=== PATIENT | female | born 1995 | race Caucasian/White ===

== ENCOUNTER 2016-10-02 16:48 | Emergency (ER) | payer OTHER, SELFPAY ==
[2016-10-02] MEDS ORDERED: METHOCARBAMOL 500 MG TAB As Ordered ONE (19:06)
[2016-10-02] MEDS ORDERED: IBUPROFEN 800 MG TAB As Ordered ONE (19:06)
--- NOTE | 2016-10-02 22:18 | EDDOCDS ---
Nurse's Notes [facility] Name: Mary Lou Marrero Age: 20 yrs Sex: Female : 1995 Arrival Date: 10/02/2016 Time: 16:48 Bed TR3 Private MD: ZACHARY Garrido Diagnosis: Strain of muscle, fascia and tendon of other parts of biceps, left arm Presentation: 10/02 17:32 Presenting complaint: Patient states: Left elbow pain that began yesterday and has lf1 gotten worse today. Pt. reports no known injury. Pain is currently 0/10 and 10/10 when moved. Adult Sepsis Screening: The patient does not have new or worsening altered mentation. Patient's respiratory rate is less than 22. Systolic blood pressure is greater than 100. Patient has a qSOFA score of 0- Negative Sepsis Screen. Suicide/Homicide risk assessment- the patient denies having any suicidal and/or homicidal ideations and does not present with any other emotional, behavioral or mental health complaints. Status: The patient is a dependent. Transition of care: patient was not received from another setting of care. 17:32 Acuity: CASSANDRA Level 4 lf1 17:32 Method Of Arrival: Walkin/Carried/Asstd lf1 Triage Assessment: 17:36 General: Appears in no apparent distress, comfortable, Behavior is cooperative. Pain: lf1 Denies pain. Location: left AC Pain currently is 0 out of 10 on a pain scale. At worst was 10 out of 10 on a pain scale. Aggravated by repositioning. 17:36 The patient is triaged at the bedside. See Assessment in Nurses Notes section of ED lf1 record. The patient is triaged at the bedside. See Assessment in Nurses Notes section of ED record. Neurological: Level of Consciousness is awake, alert, Oriented to person, place, time. Cardiovascular: Chest pain is denied. Respiratory: Respiratory effort is even, unlabored. GI: Reports nausea, Denies vomiting. : Denies burning with urination. Derm: No deficits noted. 20:09 HIV screening NA for this visit Offered previously. 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 albuterol sulfate 90 mcg/actuation Inhl HFAA 2 puffs every 12 hours (Last dose: 10/02/2016 08:00) 2. Advair Diskus 500-50 mcg/dose Inhl dsdv 1 puff 2 times per day (Last dose: 10/02/2016 08:00) - PMHx: Asthma; Ovarian cyst; - PSHx: none; - Social history: Smoking status: Patient states was never smoker of tobacco. No barriers to communication noted, The patient speaks fluent Italian, Speaks appropriately for age, Preferred Language: Italian. - Family history: Not pertinent. - : The pt / caregiver states he / she is not on anticoagulants. Home medication list is obtained from the patient. - Exposure Risk Screening:: None identified. Screenin:37 Screening information is obtained from the patient. Fall risk: No risks identified. lf1 Assistance ADL's: requires no assistance with activities of daily living. Abuse/DV Screen: The patient / caregiver reports he/she is: not in a situation that causes fear, pain or injury. Nutritional screening: No deficits noted. Advance Directives: Currently, there is no health care proxy. There is no active DNR order. home support is adequate. Assessment: 20:05 Adult Sepsis Screening: The patient does not have new or worsening altered mentation. lf1 Patient's respiratory rate is less than 22. Systolic blood pressure is greater than 100. Patient has a qSOFA score of 0- Negative Sepsis Screen. General: Appears in no apparent distress, comfortable, Behavior is cooperative. Pain: Location: left bicep Pain currently is 2 out of 10 on a pain scale. At worst was 10 out of 10 on a pain scale. Neurological: Level of Consciousness is awake, alert. EENT: No deficits noted. Cardiovascular: No deficits noted. Respiratory: Respiratory effort is even, unlabored. GI: Denies nausea, vomiting. Derm: Skin is normal. Injury Description: No known injury. Vital Signs: 16:50 BP 126 / 74; Pulse 78; Resp 18; Temp 99.0(O); Pulse Ox 100% on R/A; Weight 69.4 kg (R); dd6 Height 5 ft. 5 in. (165.10 cm) (R); 19:53 BP 127 / 72; Pulse 93; Resp 18; Temp 98.5(TE); Pulse Ox 99% on R/A; Pain 0/10; mdr 16:50 Body Mass Index 25.46 (69.40 kg, 165.10 cm) dd6 Vitals: 16:50 Log In Time: October 02, 2016 at 16:48. dd6 ED Course: 16:49 Patient visited by Shaquille Grijalva PCA. dd6 16:49 Radhika [facility] is Private Physician. dd6 16:49 Patient moved to Waiting dd6 16:50 Patient moved to Pre RCE dd6 17:34 Triage Initiated lf1 18:25 Patient moved to Triage 3 kr3 18:43 Frederick Shaikh PA is PHCP. mo1 18:43 Holley Vieira MD is Attending Physician. mo1 18:50 Patient visited by Frederick Shaikh PA. mo1 19:11 Patient moved to TR1 mb9 19:23 Patient name changed from Mary Lou\S\N\S\Marrero\S\ to Mary Lou\S\Nolvia\S\Marrero. EDMS 19:25 [facility] Payment Agreement was scanned into [employer] and attached to record. gb 19:39 Garrido, [facility] is Referral Physician. mo1 19:47 Patient moved to PR2 / 26 ajs 19:53 Patient visited by Memo Chambers PCA. mdr 20:04 Patient moved to TR3 mdr 20:05 Patient visited by Aubree Gerard RN. lf1 20:05 The patient / caregiver is instructed regarding the plan of care and ED course. lf1 20:05 No IV's were initiated during this patient's visit. No procedures done that require lf1 assistance. Administered Medications: 19:11 Drug: Ibuprofen 800 mg [ibuprofen 800 mg tablet (1 tabs)] Route: PO; mb9 20:05 Follow up: Response: Pain is decreased lf1 19:11 Drug: Methocarbamol 1 grams [methocarbamol 500 mg tablet (2 tabs)] Route: PO; mb9 20:05 Follow up: Response: Pain is decreased lf1 Order Results: There are currently no results for this order. Outcome: 19:39 Discharge ordered by Provider. mo1 20:05 Discharge Assessment: Patient awake, alert and oriented x 3. No cognitive and/or lf1 functional deficits noted. Patient verbalized understanding of disposition instructions. Patient awake and alert. Oriented to person, place and time. Patient verbalized understanding of disposition instructions. Patient has no functional deficits. patient administered narcotics - no. The following High Risk Discharge criteria are identified: None. Discharged to home ambulatory. Condition: improved. Discharge instructions given to patient, Instructed on discharge instructions, follow up and referral plans. medication usage, Demonstrated understanding of instructions, medications, Pt was receptive of discharge instructions/ teaching. Prescriptions given X 2. No special radiology studies were completed. Property :Personal belongings accompany Pt. 22:17 Patient left the ED. lf1 Signatures: Dispatcher [employer] EDMS Berta Huynh, Reg Reg gb Mel Shell,RN RN kr3 Aubree GerardRN RN lf1 Shaquille Grijalva, BRUSH WORKER BRUSH WORKER dd6 Ann Turner Michael, PA PA mo1 Frederick Sanchez,RN RN mb9 Memo Chambers, BRUSH WORKER BRUSH WORKER mdr LUIS ARMANDOD
--- NOTE | 2016-10-02 22:18 | EDDOCDS ---
Physician Documentation [facility] Name: Mary Lou Marrero Age: 20 yrs Sex: Female : 1995 Arrival Date: 10/02/2016 Time: 16:48 Bed TR3 Private MD: ZACHARY Garrido Disposition: 10/02/16 19:39 Discharged to Home/Self Care. Impression: Strain of muscle, fascia and tendon of other parts of biceps, left arm. - Condition is Stable. - Discharge Instructions: Muscle Strain, Bicipital Tendonitis. - Prescriptions for Ibuprofen 600 mg Oral Tablet - take 1 tablet by ORAL route every 6 hours As needed take with food; 30 tablet. Robaxin 500 mg Oral Tablet - take 2 tablet by ORAL route every 6 hours As needed; 40 tablet. - Work Release Form - 2 day, Medication Reconciliation, Local Pharmacy Hours form. - Follow up: ZACHARY Garrido; When: Call to arrange an appointment; Reason: Recheck today's complaints, Continuance of care. - Problem is new. - Symptoms are unchanged. Historical: - Allergies: Codeine Sulfate (Anaphylaxis); - Home Meds: 1. albuterol sulfate 90 mcg/actuation Inhl HFAA 2 puffs every 12 hours (Last dose: 10/02/2016 08:00) 2. Advair Diskus 500-50 mcg/dose Inhl dsdv 1 puff 2 times per day (Last dose: 10/02/2016 08:00) - PMHx: Asthma; Ovarian cyst; - PSHx: none; - Social history: Smoking status: Patient states was never smoker of tobacco. No barriers to communication noted, The patient speaks fluent Yakut, Speaks appropriately for age, Preferred Language: Yakut. - Family history: Not pertinent. - : The pt / caregiver states he / she is not on anticoagulants. Home medication list is obtained from the patient. - Exposure Risk Screening:: None identified. 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 5 in. (165.10 cm) (R); 19:53 BP 127 / 72; Pulse 93; Resp 18; Temp 98.5(TE); Pulse Ox 99% on R/A; Pain 0/10; mdr 16:50 Body Mass Index 25.46 (69.40 kg, 165.10 cm) dd6 MDM: 18:59 Financial registration complete. gb 19:02 Ibuprofen 800 mg PO once ordered. mo1 19:02 Methocarbamol 1 grams PO once ordered. mo1 19:03 Humerus Ordered. EDMS 19:25 [facility] Payment Agreement was scanned into [employer] and attached to record. gb 19:39 Sling ordered. mo1 Administered Medications: 19:11 Drug: Ibuprofen 800 mg [ibuprofen 800 mg tablet (1 tabs)] Route: PO; mb9 20:05 Follow up: Response: Pain is decreased lf1 19:11 Drug: Methocarbamol 1 grams [methocarbamol 500 mg tablet (2 tabs)] Route: PO; mb9 20:05 Follow up: Response: Pain is decreased lf1 Signatures: Dispatcher [employer] EDNH Berta Huynh, Reg Reg gb Aubree GerardRN RN lf1 Frederick Shaikh PA PA mo1 Frederick Sanchez RN mb9 The chart was reviewed and I authenticate all verbal orders and agree with the evaluation and treatment provided.Attachments: 19:25 [facility] Payment Agreement gb MTDD
--- NOTE | 2016-10-03 06:08 | REP ---
LEFT HUMERUS, TWO VIEWS: There is no evidence of an acute fracture, dislocation or intrinsic bone disease. IMPRESSION: No fracture or dislocation. Signed by Ketan Khan MD 10/04/2016 12:45 P
--- NOTE | 2016-10-04 23:17 | EDDOCDS ---
Nurse's Notes [facility] Name: Mary Lou Marrero Age: 20 yrs Sex: Female : 1995 Arrival Date: 10/02/2016 Time: 16:48 Bed TR3 Private MD: ZACHARY Garrido Diagnosis: Strain of muscle, fascia and tendon of other parts of biceps, left arm Presentation: 10/02 17:32 Presenting complaint: Patient states: Left elbow pain that began yesterday and has lf1 gotten worse today. Pt. reports no known injury. Pain is currently 0/10 and 10/10 when moved. Adult Sepsis Screening: The patient does not have new or worsening altered mentation. Patient's respiratory rate is less than 22. Systolic blood pressure is greater than 100. Patient has a qSOFA score of 0- Negative Sepsis Screen. Suicide/Homicide risk assessment- the patient denies having any suicidal and/or homicidal ideations and does not present with any other emotional, behavioral or mental health complaints. Status: The patient is a dependent. Transition of care: patient was not received from another setting of care. 17:32 Acuity: CASSANDRA Level 4 lf1 17:32 Method Of Arrival: Walkin/Carried/Asstd lf1 Triage Assessment: 17:36 General: Appears in no apparent distress, comfortable, Behavior is cooperative. Pain: lf1 Denies pain. Location: left AC Pain currently is 0 out of 10 on a pain scale. At worst was 10 out of 10 on a pain scale. Aggravated by repositioning. 17:36 The patient is triaged at the bedside. See Assessment in Nurses Notes section of ED lf1 record. The patient is triaged at the bedside. See Assessment in Nurses Notes section of ED record. Neurological: Level of Consciousness is awake, alert, Oriented to person, place, time. Cardiovascular: Chest pain is denied. Respiratory: Respiratory effort is even, unlabored. GI: Reports nausea, Denies vomiting. : Denies burning with urination. Derm: No deficits noted. 20:09 HIV screening NA for this visit Offered previously. 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 albuterol sulfate 90 mcg/actuation Inhl HFAA 2 puffs every 12 hours (Last dose: 10/02/2016 08:00) 2. Advair Diskus 500-50 mcg/dose Inhl dsdv 1 puff 2 times per day (Last dose: 10/02/2016 08:00) - PMHx: Asthma; Ovarian cyst; - PSHx: none; - Social history: Smoking status: Patient states was never smoker of tobacco. No barriers to communication noted, The patient speaks fluent Telugu, Speaks appropriately for age, Preferred Language: Telugu. - Family history: Not pertinent. - : The pt / caregiver states he / she is not on anticoagulants. Home medication list is obtained from the patient. - Exposure Risk Screening:: None identified. Screenin:37 Screening information is obtained from the patient. Fall risk: No risks identified. lf1 Assistance ADL's: requires no assistance with activities of daily living. Abuse/DV Screen: The patient / caregiver reports he/she is: not in a situation that causes fear, pain or injury. Nutritional screening: No deficits noted. Advance Directives: Currently, there is no health care proxy. There is no active DNR order. home support is adequate. Assessment: 20:05 Adult Sepsis Screening: The patient does not have new or worsening altered mentation. lf1 Patient's respiratory rate is less than 22. Systolic blood pressure is greater than 100. Patient has a qSOFA score of 0- Negative Sepsis Screen. General: Appears in no apparent distress, comfortable, Behavior is cooperative. Pain: Location: left bicep Pain currently is 2 out of 10 on a pain scale. At worst was 10 out of 10 on a pain scale. Neurological: Level of Consciousness is awake, alert. EENT: No deficits noted. Cardiovascular: No deficits noted. Respiratory: Respiratory effort is even, unlabored. GI: Denies nausea, vomiting. Derm: Skin is normal. Injury Description: No known injury. Vital Signs: 16:50 BP 126 / 74; Pulse 78; Resp 18; Temp 99.0(O); Pulse Ox 100% on R/A; Weight 69.4 kg (R); dd6 Height 5 ft. 5 in. (165.10 cm) (R); 19:53 BP 127 / 72; Pulse 93; Resp 18; Temp 98.5(TE); Pulse Ox 99% on R/A; Pain 0/10; mdr 16:50 Body Mass Index 25.46 (69.40 kg, 165.10 cm) dd6 Vitals: 16:50 Log In Time: October 02, 2016 at 16:48. dd6 ED Course: 16:49 Patient visited by Shaquille Grijalva PCA. dd6 16:49 Radhika [facility] [place] Private Physician. dd6 16:49 Patient moved to Waiting dd6 16:50 Patient moved to Pre RCE dd6 17:34 Triage Initiated lf1 18:25 Patient moved to Triage 3 kr3 18:43 Frederick Shaikh PA is PHCP. mo1 18:43 Holley Vieira MD is Attending Physician. mo1 18:50 Patient visited by Frederick Shaikh PA. mo1 19:11 Patient moved to TR1 mb9 19:23 Patient name changed from Mary Lou\S\N\S\Marrero\S\ to Mary Lou\S\Nolvia\S\Marrero. EDMS 19:25 [facility] Payment Agreement was scanned into [employer] and attached to record. gb 19:39 Garrido, [facility] [place] Referral Physician. mo1 19:47 Patient moved to PR2 / 26 ajs 19:53 Patient visited by Memo Chambers PCA. mdr 20:04 Patient moved to TR3 mdr 20:05 Patient visited by Aubree Gerard RN. lf1 20:05 The patient / caregiver is instructed regarding the plan of care and ED course. lf1 20:05 No IV's were initiated during this patient's visit. No procedures done that require lf1 assistance. 10/03 03:05 T-Sheet-- Draft Copy was scanned into [employer] and attached to record. hs2 06:32 Humerus Returned. EDMS Administered Medications: 10/02 19:11 Drug: Ibuprofen 800 mg [ibuprofen 800 mg tablet (1 tabs)] Route: PO; mb9 20:05 Follow up: Response: Pain is decreased lf1 19:11 Drug: Methocarbamol 1 grams [methocarbamol 500 mg tablet (2 tabs)] Route: PO; mb9 20:05 Follow up: Response: Pain is decreased lf1 Order Results: Radiology Order: Humerus Test: Humerus REASON FOR EXAMINATION: Trauma; LEFT HUMERUS, TWO VIEWS:; ; There is no evidence of an acute fracture, dislocation or intrinsic bone; disease.; ; IMPRESSION:; ; No fracture or dislocation.; ; ; Signed by; Ketan Khan MD 10/04/2016 12:45 P; Outcome: 19:39 Discharge ordered by Provider. mo1 20:05 Discharge Assessment: Patient awake, alert and oriented x 3. No cognitive and/or lf1 functional deficits noted. Patient verbalized understanding of disposition instructions. Patient awake and alert. Oriented to person, place and time. Patient verbalized understanding of disposition instructions. Patient has no functional deficits. patient administered narcotics - no. The following High Risk Discharge criteria are identified: None. Discharged to home ambulatory. Condition: improved. Discharge instructions given to patient, Instructed on discharge instructions, follow up and referral plans. medication usage, Demonstrated understanding of instructions, medications, Pt was receptive of discharge instructions/ teaching. Prescriptions given X 2. No special radiology studies were completed. Property :Personal belongings accompany Pt. 22:17 Patient left the ED. lf1 Signatures: Dispatcher [employer] EDMS Berta Huynh, Reg Reg gb Mel Shell,RN RN kr3 Aubree GerardRN RN lf1 Shaquille Grijalva, PLASTIC AND RECONSTRUCTIVE SURGEON PLASTIC AND RECONSTRUCTIVE SURGEON dd6 Ann Turner Michael, PA PA mo1 Frederick Sanchez,RN RN mb9 Memo Chambers, PLASTIC AND RECONSTRUCTIVE SURGEON PLASTIC AND RECONSTRUCTIVE SURGEON mdr Lacey Sneed, Reg Reg hs2 Chart Complete MTDD
--- NOTE | 2016-10-04 23:17 | EDDOCDS ---
Physician Documentation [facility] Name: Mary Lou Marrero Age: 20 yrs Sex: Female : 1995 Arrival Date: 10/02/2016 Time: 16:48 Bed TR3 Private MD: ZACHARY Garrido Disposition: 10/02/16 19:39 Discharged to Home/Self Care. Impression: Strain of muscle, fascia and tendon of other parts of biceps, left arm. - Condition is Stable. - Discharge Instructions: Muscle Strain, Bicipital Tendonitis. - Prescriptions for Ibuprofen 600 mg Oral Tablet - take 1 tablet by ORAL route every 6 hours As needed take with food; 30 tablet. Robaxin 500 mg Oral Tablet - take 2 tablet by ORAL route every 6 hours As needed; 40 tablet. - Work Release Form - 2 day, Medication Reconciliation, Local Pharmacy Hours form. - Follow up: ZACHARY Garrido; When: Call to arrange an appointment; Reason: Recheck today's complaints, Continuance of care. - Problem is new. - Symptoms are unchanged. Historical: - Allergies: Codeine Sulfate (Anaphylaxis); - Home Meds: 1. albuterol sulfate 90 mcg/actuation Inhl HFAA 2 puffs every 12 hours (Last dose: 10/02/2016 08:00) 2. Advair Diskus 500-50 mcg/dose Inhl dsdv 1 puff 2 times per day (Last dose: 10/02/2016 08:00) - PMHx: Asthma; Ovarian cyst; - PSHx: none; - Social history: Smoking status: Patient states was never smoker of tobacco. No barriers to communication noted, The patient speaks fluent Pashto, Speaks appropriately for age, Preferred Language: Pashto. - Family history: Not pertinent. - : The pt / caregiver states he / she is not on anticoagulants. Home medication list is obtained from the patient. - Exposure Risk Screening:: None identified. 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 5 in. (165.10 cm) (R); 19:53 BP 127 / 72; Pulse 93; Resp 18; Temp 98.5(TE); Pulse Ox 99% on R/A; Pain 0/10; mdr 16:50 Body Mass Index 25.46 (69.40 kg, 165.10 cm) dd6 MDM: 18:59 Financial registration complete. gb 19:02 Ibuprofen 800 mg PO once ordered. mo1 19:02 Methocarbamol 1 grams PO once ordered. mo1 19:03 Humerus Ordered. EDMS [facility] Payment Agreement was scanned into [employer] and attached to record. gb 19:39 Sling ordered. mo1 10/03 03:05 T-Sheet-- Draft Copy was scanned into [employer] and attached to record. hs2 Administered Medications: 10/02 19:11 Drug: Ibuprofen 800 mg [ibuprofen 800 mg tablet (1 tabs)] Route: PO; mb9 20:05 Follow up: Response: Pain is decreased lf1 19:11 Drug: Methocarbamol 1 grams [methocarbamol 500 mg tablet (2 tabs)] Route: PO; mb9 20:05 Follow up: Response: Pain is decreased lf1 Signatures: Dispatcher [employer] EDMS Berta Huynh, Reg Reg gb Aubree Gerard RN RN lf1 Frederick Shaikh PA PA mo1 Lacey Sneed, Reg Reg hs2 Frederick Sanchez RN mb9 The chart was reviewed and I authenticate all verbal orders and agree with the evaluation and treatment provided.Attachments: : [facility] Payment Agreement gb 10/03 03:05 T-Sheet-- Draft Copy hs2 Chart Complete MTDD
--- NOTE | 2016-10-04 23:17 | EDDOCDS ---
Physician Documentation [facility] Name: Mary Lou Marrero Age: 20 yrs Sex: Female : 1995 Arrival Date: 10/02/2016 Time: 16:48 Bed TR3 Private MD: ZACHARY Garrido Disposition: 10/02/16 19:39 Discharged to Home/Self Care. Impression: Strain of muscle, fascia and tendon of other parts of biceps, left arm. - Condition is Stable. - Discharge Instructions: Muscle Strain, Bicipital Tendonitis. - Prescriptions for Ibuprofen 600 mg Oral Tablet - take 1 tablet by ORAL route every 6 hours As needed take with food; 30 tablet. Robaxin 500 mg Oral Tablet - take 2 tablet by ORAL route every 6 hours As needed; 40 tablet. - Work Release Form - 2 day, Medication Reconciliation, Local Pharmacy Hours form. - Follow up: ZACHARY Garrido; When: Call to arrange an appointment; Reason: Recheck today's complaints, Continuance of care. - Problem is new. - Symptoms are unchanged. Historical: - Allergies: Codeine Sulfate (Anaphylaxis); - Home Meds: 1. albuterol sulfate 90 mcg/actuation Inhl HFAA 2 puffs every 12 hours (Last dose: 10/02/2016 08:00) 2. Advair Diskus 500-50 mcg/dose Inhl dsdv 1 puff 2 times per day (Last dose: 10/02/2016 08:00) - PMHx: Asthma; Ovarian cyst; - PSHx: none; - Social history: Smoking status: Patient states was never smoker of tobacco. No barriers to communication noted, The patient speaks fluent Maltese, Speaks appropriately for age, Preferred Language: Maltese. - Family history: Not pertinent. - : The pt / caregiver states he / she is not on anticoagulants. Home medication list is obtained from the patient. - Exposure Risk Screening:: None identified. 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 5 in. (165.10 cm) (R); 19:53 BP 127 / 72; Pulse 93; Resp 18; Temp 98.5(TE); Pulse Ox 99% on R/A; Pain 0/10; mdr 16:50 Body Mass Index 25.46 (69.40 kg, 165.10 cm) dd6 MDM: 18:59 Financial registration complete. gb 19:02 Ibuprofen 800 mg PO once ordered. mo1 19:02 Methocarbamol 1 grams PO once ordered. mo1 19:03 Humerus Ordered. EDMS [facility] Payment Agreement was scanned into [employer] and attached to record. gb 19:39 Sling ordered. mo1 10/03 03:05 T-Sheet-- Draft Copy was scanned into [employer] and attached to record. hs2 Administered Medications: 10/02 19:11 Drug: Ibuprofen 800 mg [ibuprofen 800 mg tablet (1 tabs)] Route: PO; mb9 20:05 Follow up: Response: Pain is decreased lf1 19:11 Drug: Methocarbamol 1 grams [methocarbamol 500 mg tablet (2 tabs)] Route: PO; mb9 20:05 Follow up: Response: Pain is decreased lf1 Signatures: Dispatcher [employer] EDMS Berta Huynh, Reg Reg gb Aubree Gerard RN RN lf1 Frederick Shaikh PA PA mo1 Lacey Sneed, Reg Reg hs2 Frederick Sanchez RN mb9 The chart was reviewed and I authenticate all verbal orders and agree with the evaluation and treatment provided.Attachments: : [facility] Payment Agreement gb 10/03 03:05 T-Sheet-- Draft Copy hs2 Chart Complete MTDD
== END 2016-10-02 22:17 | disposition home or self-care (01) ==
LOC: M ED 16:48
DX: S46.212A Strain of muscle, fascia and tendon of other parts of biceps, left arm, initial encounter (principal); X58.XXXA Exposure to other specified factors, initial encounter; Y92.019 Unspecified place in single-family (private) house as the place of occurrence of the external cause; Y93.89 Activity, other specified; Y99.8 Other external cause status; J45.909 Unspecified asthma, uncomplicated; N83.209 Unspecified ovarian cyst, unspecified side; Z79.51 Long term (current) use of inhaled steroids; Z88.5 Allergy status to narcotic agent

== ENCOUNTER 2016-10-19 01:32 | Emergency (ER) | payer OTHER ==
[2016-10-19] MEDS ORDERED: LIDOCAINE VISCOUS 2% SOLN 15ML UDC As Ordered ONE (05:58)
[2016-10-19] MEDS ORDERED: ONDANSETRON 4 MG ORAL DISINTEGRATING TAB (S0181) As Ordered ONE (05:58)
[2016-10-19] MEDS ORDERED: ONDANSETRON 4MG/2ML VIAL (J2405) As Ordered ONE (06:14)
[2016-10-19] MEDS ORDERED: KETOROLAC 30 MG/ML VIAL (J1885) As Ordered ONE (06:15)
[2016-10-19 06:17] LABS: BASO % 0.3 % (0.0-1.0); EOS # 0.1 K/mm3 (0.0-0.50); EOS % 0.9 % (0.0-3.0); LARGE UNSTAINED CELL # 0.2 K/mm3 (0.0-0.4); LARGE UNSTAINED CELL % 2.2 % (0.0-4.0); LYMPH # 1.8 K/mm3 (1.5-6.5); LYMPH % 17.3 % (24.0-44.0); MEAN CORPUSCULAR HEMOGLOBIN 29.9 pg (27.0-33.0); MONO # 0.5 K/mm3 (0.0-0.8); MONO % 4.2 % (0.0-5.0); NEUTROPHILS # 7.9 K/mm3 (1.8-7.7); NEUTROPHILS % 75.1 % (36.0-66.0); PLATELET COUNT, AUTOMATED 228 k/mm3 (150-450); RED CELL DISTRIBUTION WIDTH 12.3 % (11.5-14.5); WHITE BLOOD COUNT 10.5 K/mm3 (4.0-10.0)
[2016-10-19 06:39] LABS: CONTROL LINE HCG INT CTR LINE PRESENT
[2016-10-19 06:44] LABS: ANION GAP 10 MEQ/L (8-16); BLOOD UREA NITROGEN 11 MG/DL (7-18); CALCIUM LEVEL 8.8 MG/DL (8.5-10.1); CARBON DIOXIDE LEVEL 23 MEQ/L (21-32); CHLORIDE LEVEL 110 MEQ/L (98-107); CREATININE FOR GFR 0.75 MG/DL (0.55-1.02); GLOMERULAR FILTRATION RATE > 60.0 (>60); GLUCOSE, FASTING 86 MG/DL (70-105); POTASSIUM SERUM 3.5 MEQ/L (3.5-5.1); SODIUM LEVEL 143 MEQ/L (136-145)
[2016-10-19 07:26] LABS: CONTROL LINE MONO INT CTR LINE PRESENT
--- NOTE | 2016-10-19 10:09 | EDDOCDS ---
Physician Documentation [facility] Name: Mary Lou Marrero Age: 20 yrs Sex: Female : 1995 Arrival Date: 10/19/2016 Time: 01:32 Bed 13 Private MD: Disposition: 10/19/16 10:00 Discharged to Home/Self Care. Impression: Acute pharyngitis. - Condition is Stable. - Discharge Instructions: Pharyngitis. - Prescriptions for Zofran 4 mg Oral Tablet - take 1 tablet by ORAL route 1-2 times daily As needed; 5 tablet. - Medication Reconciliation, Local Pharmacy Hours form. - Follow up: Elliott Paniagua, [facility]; When: Call to arrange an appointment; Reason: Continuance of care. - Problem is new. - Symptoms have improved. Historical: - Allergies: Codeine Sulfate (Anaphylaxis); - Home Meds: 1. Advair Diskus 500-50 mcg/dose Inhl dsdv 1 puff 2 times per day 2. albuterol sulfate 90 mcg/actuation Inhl HFAA 2 puffs every 12 hours 3. Zyrtec Oral 4. sudafed - PMHx: Asthma; Ovarian cyst; - PSHx: none; - Social history: Smoking status: Patient states was never smoker of tobacco. No barriers to communication noted, The patient speaks fluent Belizean, Speaks appropriately for age. - Family history: Not pertinent. - : The pt / caregiver states he / she is not on anticoagulants. Home medication list is obtained from the patient. - Exposure Risk Screening:: None identified. 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 5 in. (165.10 cm); 07:22 BP 114 / 64; Pulse 89; Resp 14; Temp 98.6(O); Pulse Ox 98% on R/A; js13 10:05 BP 112 / 60; Pulse 78; Resp 14; Temp 98.4(O); Pulse Ox 98% on R/A; js13 01:55 Body Mass Index 24.63 (67.13 kg, 165.10 cm) cz MDM: 01:58 Strep Screen, Nursing ordered. cz 02:10 GATS (NEGATIVE STREP SCREEN) Ordered. EDMS 03:08 [facility] [place] was scanned into [employer] and attached to record. hs2 05:52 Lidocaine Viscous Liquid 2 % 15 ml Mucous Membrane in affected area once ordered. mm11 05:52 Ondansetron ODT Oral Disintegrating Tablet 4 mg PO once ordered. mm11 05:52 Misc. Nursing Order ordered. mm11 05:58 Financial registration complete. hs2 06:06 IV Saline Lock ordered. mm11 06:06 Ondansetron 4 mg IVP once ordered. mm11 06:06 ketorolac 30 mg IVP once ordered. mm11 06:06 LR Solution 1000 ml IV at bolus once ordered. mm11 06:07 CBC with Diff Ordered. EDMS 06:07 BMP Ordered. EDMS 06:07 HCG,Serum Qualitative Ordered. EDMS 06:18 CREATINE PHOSPHOKINASE Ordered. EDMS 06:44 CBC with Diff Reviewed. mm11 06:44 HCG,Serum Qualitative Reviewed. mm11 06:54 BMP Reviewed. mm11 06:54 HCG,Serum Qualitative Reviewed. mm11 06:54 CREATINE PHOSPHOKINASE Reviewed. mm11 07:11 Monoscreen Ordered. EDMS Administered Medications: 06:02 Drug: Ondansetron ODT 4 mg [ondansetron 4 mg disintegrating tablet (1 tabs)] Route: PO; af2 06:03 Drug: Lidocaine Viscous 15 ml [Lidocaine Viscous 2 % mucosal solution (15 mL)] Route: af2 Mucous Membrane; Site: affected area; 06:23 Drug: Ondansetron 4 mg [ondansetron HCl 2 mg/mL intravenous solution (2 mL)] Route: af2 IVP; Site: left hand; 06:23 Drug: ketorolac 30 mg [ketorolac 30 mg/mL (1 mL) injection solution (1 mL)] Route: IVP; af2 Site: left hand; 06:23 Drug: LR 1000 ml [lactated ringers intravenous solution] Route: IV; Rate: bolus; Site: af2 left hand; 09:04 Follow up: IV Status: Completed infusion; IV Intake: 1000ml js13 Signatures: Dispatcher [employer] EDMS Claus Gamez RN RN cz Maynard, Matthew, DO DO mm11 Gloria Neal RN RN js13 Claire KapadiaRN RN af2 Sunshine Duenas MD MD Lacey Sneed, Reg Reg hs2 The chart was reviewed and I authenticate all verbal orders and agree with the evaluation and treatment provided.Corrections: (The following items were deleted from the chart) 06:17 06:08 CREATINE PHOSPHOKINASE+LAB ordered. EDMS EDMS Attachments: 03:08 [facility] [place] hs2 MTDD
--- NOTE | 2016-10-19 10:09 | EDDOCDS ---
Nurse's Notes [facility] Name: Mary Lou Marrero Age: 20 yrs Sex: Female : 1995 Arrival Date: 10/19/2016 Time: 01:32 Bed 13 Private MD: Diagnosis: Acute pharyngitis Presentation: 10/19 01:52 Presenting complaint: Patient states: she has been ill for a couple of weeks seen by own provider has been on tamiful zyrtec with no change is symptoms, continues with sore throat ,pt states had a negative strep test yesterday. Risk factors: Stridor is not present. Drooling is not present. Shortness of breath is not present. Cellulitis is not present. Adult Sepsis Screening: The patient does not have new or worsening altered mentation. Patient's respiratory rate is less than 22. Systolic blood pressure is greater than 100. Patient has a qSOFA score of 0- Negative Sepsis Screen. Suicide/Homicide risk assessment- the patient denies having any suicidal and/or homicidal ideations and does not present with any other emotional, behavioral or mental health complaints. Status: The patient is a dependent. Transition of care: patient was not received from another setting of care. 01:52 Acuity: CASSANDRA Level 4 01:52 Method Of Arrival: Walkin/Carried/Asstd Triage Assessment: 01:55 General: Appears uncomfortable. Pain: Pain currently is 10 out of 10 on a pain scale. HIV screening NA for this visit Offered previously. 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 Advair Diskus 500-50 mcg/dose Inhl dsdv 1 puff 2 times per day 2. albuterol sulfate 90 mcg/actuation Inhl HFAA 2 puffs every 12 hours 3. Zyrtec Oral 4. sudafed - PMHx: Asthma; Ovarian cyst; - PSHx: none; - Social history: Smoking status: Patient states was never smoker of tobacco. No barriers to communication noted, The patient speaks fluent Latvian, Speaks appropriately for age. - Family history: Not pertinent. - : The pt / caregiver states he / she is not on anticoagulants. Home medication list is obtained from the patient. - Exposure Risk Screening:: None identified. Screenin:04 Screening information is obtained from the patient. Fall risk: No risks identified. af2 Assistance ADL's: requires no assistance with activities of daily living. Abuse/DV Screen: The patient / caregiver reports he/she is: not in a situation that causes fear, pain or injury. Nutritional screening: No deficits noted. Advance Directives: Currently, there is no health care proxy. home support is adequate. Assessment: 06:03 General: Appears in no apparent distress, comfortable, Behavior is appropriate for age, af2 cooperative, pt found lying on stretcher with eyes closed resting quietly. offers no complaints. . EENT: Throat is reddened Reports pain to throat.. Respiratory: Airway is patent Respiratory effort is even, unlabored. GI: Reports nausea, vomiting. Derm: Skin is normal. 06:24 General: pt vomited medications, provider notified, pt states she has been nauseous for af2 1 week.. 07:23 Adult Sepsis Screening: The patient does not have new or worsening altered mentation. js13 Patient's respiratory rate is less than 22. Systolic blood pressure is greater than 100. Patient has a qSOFA score of 0- Negative Sepsis Screen. General: Appears in no apparent distress, comfortable, Behavior is appropriate for age, cooperative. Pain: Location: throat. Neurological: Level of Consciousness is awake, alert. Respiratory: Airway is patent Respiratory effort is even, unlabored, Respiratory pattern is regular. Derm: Skin is pink, warm & dry. 07:55 Reassessment: Patient appears in no apparent distress at this time. Patient states js13 feeling better. Patient states symptoms have improved. 09:04 General: Appears in no apparent distress, comfortable, Behavior is appropriate for age, js13 cooperative. Pain: Location: throat. Neurological: Level of Consciousness is awake, alert. Respiratory: Airway is patent Respiratory effort is even, unlabored, Respiratory pattern is regular, symmetrical. Derm: Skin is pink, warm & dry. 10:05 Adult Sepsis Screening: The patient does not have new or worsening altered mentation. js13 Patient's respiratory rate is less than 22. Systolic blood pressure is greater than 100. Patient has a qSOFA score of 0- Negative Sepsis Screen. General: Appears in no apparent distress, comfortable, Behavior is appropriate for age, cooperative. Pain: Denies pain. Neurological: Level of Consciousness is awake, alert. Respiratory: Airway is patent Respiratory effort is even, unlabored, Respiratory pattern is regular, symmetrical. Derm: Skin is pink, warm & dry. Vital Signs: 01:55 BP 117 / 69; Pulse 100; Resp 16; Temp 98.4(T); Pulse Ox 94% ; Weight 67.13 kg; Height 5 cz ft. 5 in. (165.10 cm); 07:22 BP 114 / 64; Pulse 89; Resp 14; Temp 98.6(O); Pulse Ox 98% on R/A; js13 10:05 BP 112 / 60; Pulse 78; Resp 14; Temp 98.4(O); Pulse Ox 98% on R/A; js13 01:55 Body Mass Index 24.63 (67.13 kg, 165.10 cm) cz Vitals: 01:55 Log In Time: October 19, 2016 at 01:32. cz 02:08 Strep Screen is obtained and tested: Negative, a GATSNEG culture is ordered in [facility] cz and sent. ED Course: 01:33 Patient visited by Darek Moncada Reg. pm4 01:33 Patient moved to Waiting pm4 01:48 Patient moved to Triage 1 cz 01:54 Triage Initiated cz 02:04 Patient moved to MTA Wait cz 03:08 [facility] Payment Agreement was scanned into [employer] and attached to record. hs2 05:08 Patient moved to Pre RCE cz 05:18 lCaire Kapadia RN is Primary Nurse. af2 05:18 Patient moved to 13 af2 05:38 Michael Rodriguez DO is Attending Physician. mm11 05:38 Patient visited by Mihcael Rodriguez DO. mm11 05:52 Patient visited by Michael Rodriguez DO. mm11 06:04 Patient visited by Claire Kapadia RN. af2 06:04 The patient / caregiver is instructed regarding the plan of care and ED course. Patient af2 has correct armband on for positive identification. Placed in gown. 06:04 No IV's were initiated during this patient's visit. No procedures done that require af2 assistance. 06:23 CREATINE PHOSPHOKINASE Sent. af2 06:23 Inserted saline lock: 20 gauge in left hand and blood collected. The patient tolerated af2 the procedure well. 06:25 Patient visited by Claire Kapadia RN. af2 06:57 Patient visited by Claire Kapadia RN. af2 07:05 Gloria Neal RN is Primary Nurse. js13 07:24 Patient visited by Gloria Neal RN. js13 07:36 Attending Physician role handed off by Michael Rodriguez DO fg 07:36 Sunshine Duenas MD is Attending Physician. fg 07:45 Primary Nurse role handed off by Claire Kapadia RN kr3 07:55 Patient visited by Gloria Neal RN. js13 09:05 Patient visited by Gloria Neal RN. js13 09:59 [facility] is Referral Physician. fg 10:05 Discontinued IV lock intact, bleeding controlled, pressure dressing applied, No js13 redness/swelling at site. Administered Medications: 06:02 Drug: Ondansetron ODT 4 mg [ondansetron 4 mg disintegrating tablet (1 tabs)] Route: PO; af2 06:03 Drug: Lidocaine Viscous 15 ml [Lidocaine Viscous 2 % mucosal solution (15 mL)] Route: af2 Mucous Membrane; Site: affected area; 06:23 Drug: Ondansetron 4 mg [ondansetron HCl 2 mg/mL intravenous solution (2 mL)] Route: af2 IVP; Site: left hand; 06:23 Drug: ketorolac 30 mg [ketorolac 30 mg/mL (1 mL) injection solution (1 mL)] Route: IVP; af2 Site: left hand; 06:23 Drug: LR 1000 ml [lactated ringers intravenous solution] Route: IV; Rate: bolus; Site: af2 left hand; 09:04 Follow up: IV Status: Completed infusion; IV Intake: 1000ml js13 Intake: 09:04 IV: 1000.00ml; Total: 1000.00ml. js13 Order Results: Lab Order: CBC with Diff; SPEC'M 10/19/16 06:12 Test: WHITE BLOOD COUNT; Value: 10.5; Range: 4.0-10.0; Abnormal: Above high normal; Units: K/mm3; Status: F Test: RED BLOOD COUNT; Value: 4.24; Range: 4.00-5.40; Units: M/mm3; Status: F Test: HEMOGLOBIN; Value: 12.7; Range: 12.0-16.0; Units: g/dl; Status: F Test: HEMATOCRIT; Value: 37.3; Range: 36.0-47.0; Units: %; Status: F Test: MEAN CORPUSCULAR VOLUME; Value: 88.0; Range: 80.0-96.0; Units: fl; Status: F Test: MEAN CORPUSCULAR HEMOGLOBIN; Value: 29.9; Range: 27.0-33.0; Units: pg; Status: F Test: MEAN CORPUSCULAR HGB CONC; Value: 34.0; Range: 32.0-36.5; Units: g/dl; Status: F Test: RED CELL DISTRIBUTION WIDTH; Value: 12.3; Range: 11.5-14.5; Units: %; Status: F Test: PLATELET COUNT, AUTOMATED; Value: 228; Range: 150-450; Units: k/mm3; Status: F Test: NEUTROPHILS %; Value: 75.1; Range: 36.0-66.0; Abnormal: Above high normal; Units: %; Status: F Test: LYMPH %; Value: 17.3; Range: 24.0-44.0; Abnormal: Below low normal; Units: %; Status: F Test: MONO %; Value: 4.2; Range: 0.0-5.0; Units: %; Status: F Test: EOS %; Value: 0.9; Range: 0.0-3.0; Units: %; Status: F Test: BASO %; Value: 0.3; Range: 0.0-1.0; Units: %; Status: F Test: LARGE UNSTAINED CELL %; Value: 2.2; Range: 0.0-4.0; Units: %; Status: F Test: NEUTROPHILS #; Value: 7.9; Range: 1.8-7.7; Abnormal: Above high normal; Units: K/mm3; Status: F Test: LYMPH #; Value: 1.8; Range: 1.5-6.5; Units: K/mm3; Status: F Test: MONO #; Value: 0.5; Range: 0.0-0.8; Units: K/mm3; Status: F Test: EOS #; Value: 0.1; Range: 0.0-0.50; Units: K/mm3; Status: F Test: BASO #; Value: 0.0; Range: 0.0-0.2; Units: K/mm3; Status: F Test: LARGE UNSTAINED CELL #; Value: 0.2; Range: 0.0-0.4; Units: K/mm3; Status: F Lab Order: [facility]; SPEC'M 10/19/16 06:12 Test: GLUCOSE, FASTING; Value: 86; Range: 70-105; Units: MG/DL; Status: F Test: BLOOD UREA NITROGEN; Value: 11; Range: 7-18; Units: MG/DL; Status: F Test: CREATININE FOR GFR; Value: 0.75; Range: 0.55-1.02; Units: MG/DL; Status: F Test: SODIUM LEVEL; Range: 136-145; Units: MEQ/L; Status: I Test: POTASSIUM SERUM; Range: 3.5-5.1; Units: MEQ/L; Status: I Test: CHLORIDE LEVEL; Range: 98-107; Units: MEQ/L; Status: I Test: CARBON DIOXIDE LEVEL; Range: 21-32; Units: MEQ/L; Status: I Test: ANION GAP; Range: 8-16; Units: MEQ/L; Status: I Test: CALCIUM LEVEL; Range: 8.5-10.1; Units: MG/DL; Status: I Test: GLOMERULAR FILTRATION RATE; Value: > 60.0; Range: >60; Status: F Test: SODIUM LEVEL; Value: 143; Range: 136-145; Units: MEQ/L; Status: F Test: POTASSIUM SERUM; Value: 3.5; Range: 3.5-5.1; Units: MEQ/L; Status: F Test: CHLORIDE LEVEL; Value: 110; Range: 98-107; Abnormal: Above high normal; Units: MEQ/L; Status: F Test: CARBON DIOXIDE LEVEL; Value: 23; Range: 21-32; Units: MEQ/L; Status: F Test: ANION GAP; Value: 10; Range: 8-16; Units: MEQ/L; Status: F Test: CALCIUM LEVEL; Value: 8.8; Range: 8.5-10.1; Units: MG/DL; Status: F Test Note: ; Units are mL/min/1.73 m2 Chronic Kidney Disease Staging per NKF: Stage I & II GFR >=60 Normal to Mildly Decreased Stage III GFR 30-59 Moderately Decreased Stage IV GFR 15-29 Severely Decreased Stage V GFR <15 Very Little GFR Left ESRD GFR <15 on VETERINARY PARASITOLOGIST Lab Order: HCG,Serum Qualitative; SPEC'M 10/19/16 06:12 Test: HCG, SERUM QUALITATIVE; Value: NEGATIVE; Range: NEGATIVE; Status: F Lab Order: CREATINE PHOSPHOKINASE; SPEC'M 10/19/16 06:12 Test: CPK CREATINE PHOSPHOKINASE; Value: 54; Range: 26-192; Units: U/L; Status: F Lab Order: Monoscreen; SPEC'M 10/19/16 06:12 Test: MONO SCRN; Value: NEGATIVE; Range: NEGATIVE; Status: F Outcome: 10:00 Discharge ordered by Provider. 10:08 Discharge Assessment: Patient awake, alert and oriented x 3. No cognitive and/or js13 functional deficits noted. Patient verbalized understanding of disposition instructions. patient administered narcotics - no. The following High Risk Discharge criteria are identified: None. Discharged to home ambulatory, with significant other. Condition: stable. Discharge instructions given to patient, Instructed on discharge instructions, follow up and referral plans. Demonstrated understanding of instructions, Pt was receptive of discharge instructions/ teaching. No special radiology studies were completed. Property :Personal belongings accompany Pt. 10:08 Patient left the ED. js13 Signatures: Claus Gamez, RN RN cz Mel Shell RN RN [email or web address] Michael Rodriguez, DO mm11 Gloria Neal RN RN js13 Claire Kapadia RN RN [email or web address] Sunshine Duenas MD MD Lacey Sneed, Reg Reg hs2 Darek Moncada, Reg Reg pm4 MTDD
--- NOTE | 2016-10-21 11:08 | EDDOCDS ---
Physician Documentation [facility] Name: Mary Lou Marrero Age: 20 yrs Sex: Female : 1995 Arrival Date: 10/19/2016 Time: 01:32 Bed 13 Private MD: Disposition: 10/19/16 10:00 Discharged to Home/Self Care. Impression: Acute pharyngitis. - Condition is Stable. - Discharge Instructions: Pharyngitis. - Prescriptions for Zofran 4 mg Oral Tablet - take 1 tablet by ORAL route 1-2 times daily As needed; 5 tablet. - Medication Reconciliation, Local Pharmacy Hours form. - Follow up: Elliott Paniagua, [facility]; When: Call to arrange an appointment; Reason: Continuance of care. - Problem is new. - Symptoms have improved. Historical: - Allergies: Codeine Sulfate (Anaphylaxis); - Home Meds: 1. Advair Diskus 500-50 mcg/dose Inhl dsdv 1 puff 2 times per day 2. albuterol sulfate 90 mcg/actuation Inhl HFAA 2 puffs every 12 hours 3. Zyrtec Oral 4. sudafed - PMHx: Asthma; Ovarian cyst; - PSHx: none; - Social history: Smoking status: Patient states was never smoker of tobacco. No barriers to communication noted, The patient speaks fluent Barbadian, Speaks appropriately for age. - Family history: Not pertinent. - : The pt / caregiver states he / she is not on anticoagulants. Home medication list is obtained from the patient. - Exposure Risk Screening:: None identified. 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 5 in. (165.10 cm); 07:22 BP 114 / 64; Pulse 89; Resp 14; Temp 98.6(O); Pulse Ox 98% on R/A; js13 10:05 BP 112 / 60; Pulse 78; Resp 14; Temp 98.4(O); Pulse Ox 98% on R/A; js13 01:55 Body Mass Index 24.63 (67.13 kg, 165.10 cm) cz MDM: 01:58 Strep Screen, Nursing ordered. cz 02:10 GATS (NEGATIVE STREP SCREEN) Ordered. EDMS 03:08 [facility] [place] Agreement was scanned into [employer] and attached to record. hs2 05:52 Lidocaine Viscous Liquid 2 % 15 ml Mucous Membrane in affected area once ordered. mm11 05:52 Ondansetron ODT Oral Disintegrating Tablet 4 mg PO once ordered. mm11 05:52 Misc. Nursing Order ordered. mm11 05:58 Financial registration complete. hs2 06:06 IV Saline Lock ordered. mm11 06:06 Ondansetron 4 mg IVP once ordered. mm11 06:06 ketorolac 30 mg IVP once ordered. mm11 06:06 LR Solution 1000 ml IV at bolus once ordered. mm11 06:07 CBC with Diff Ordered. EDMS 06:07 BMP Ordered. EDMS 06:07 HCG,Serum Qualitative Ordered. EDMS 06:18 CREATINE PHOSPHOKINASE Ordered. EDMS 06:44 CBC with Diff Reviewed. mm11 06:44 HCG,Serum Qualitative Reviewed. mm11 06:54 BMP Reviewed. mm11 06:54 HCG,Serum Qualitative Reviewed. mm11 06:54 CREATINE PHOSPHOKINASE Reviewed. mm11 07:11 Monoscreen Ordered. EDMS 15:10 T-Sheet-- Draft Copy was scanned into [employer] and attached to record. gb Administered Medications: 06:02 Drug: Ondansetron ODT 4 mg [ondansetron 4 mg disintegrating tablet (1 tabs)] Route: PO; af2 06:03 Drug: Lidocaine Viscous 15 ml [Lidocaine Viscous 2 % mucosal solution (15 mL)] Route: af2 Mucous Membrane; Site: affected area; 06:23 Drug: Ondansetron 4 mg [ondansetron HCl 2 mg/mL intravenous solution (2 mL)] Route: af2 IVP; Site: left hand; 06:23 Drug: ketorolac 30 mg [ketorolac 30 mg/mL (1 mL) injection solution (1 mL)] Route: IVP; af2 Site: left hand; 06:23 Drug: LR 1000 ml [lactated ringers intravenous solution] Route: IV; Rate: bolus; Site: af2 left hand; 09:04 Follow up: IV Status: Completed infusion; IV Intake: 1000ml js13 Signatures: Dispatcher [employer] EDMS Claus Gamez RN RN cz Berta Huynh, Reg Reg gb Michael Rodriguez, DO CARRILLO mm11 Gloria Neal,RN RN js13 Claire Kapadia RN RN af2 Sunshine Duenas MD MD Lacey Sneed, Reg Reg hs2 The chart was reviewed and I authenticate all verbal orders and agree with the evaluation and treatment provided.Corrections: (The following items were deleted from the chart) 06:17 06:08 CREATINE PHOSPHOKINASE+LAB ordered. EDMS EDMS Attachments: 03:08 [facility] Payment Agreement hs2 15:10 T-Sheet-- Draft Copy gb Chart Complete MTDD
--- NOTE | 2016-10-21 11:09 | EDDOCDS ---
Nurse's Notes [facility] Name: Mary Lou Marrero Age: 20 yrs Sex: Female : 1995 Arrival Date: 10/19/2016 Time: 01:32 Bed 13 Private MD: Diagnosis: Acute pharyngitis Presentation: 10/19 01:52 Presenting complaint: Patient states: she has been ill for a couple of weeks seen by own provider has been on tamiful zyrtec with no change is symptoms, continues with sore throat ,pt states had a negative strep test yesterday. Risk factors: Stridor is not present. Drooling is not present. Shortness of breath is not present. Cellulitis is not present. Adult Sepsis Screening: The patient does not have new or worsening altered mentation. Patient's respiratory rate is less than 22. Systolic blood pressure is greater than 100. Patient has a qSOFA score of 0- Negative Sepsis Screen. Suicide/Homicide risk assessment- the patient denies having any suicidal and/or homicidal ideations and does not present with any other emotional, behavioral or mental health complaints. Status: The patient is a dependent. Transition of care: patient was not received from another setting of care. 01:52 Acuity: CASSANDRA Level 4 01:52 Method Of Arrival: Walkin/Carried/Asstd Triage Assessment: 01:55 General: Appears uncomfortable. Pain: Pain currently is 10 out of 10 on a pain scale. HIV screening NA for this visit Offered previously. 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 Advair Diskus 500-50 mcg/dose Inhl dsdv 1 puff 2 times per day 2. albuterol sulfate 90 mcg/actuation Inhl HFAA 2 puffs every 12 hours 3. Zyrtec Oral 4. sudafed - PMHx: Asthma; Ovarian cyst; - PSHx: none; - Social history: Smoking status: Patient states was never smoker of tobacco. No barriers to communication noted, The patient speaks fluent Sao Tomean, Speaks appropriately for age. - Family history: Not pertinent. - : The pt / caregiver states he / she is not on anticoagulants. Home medication list is obtained from the patient. - Exposure Risk Screening:: None identified. Screenin:04 Screening information is obtained from the patient. Fall risk: No risks identified. af2 Assistance ADL's: requires no assistance with activities of daily living. Abuse/DV Screen: The patient / caregiver reports he/she is: not in a situation that causes fear, pain or injury. Nutritional screening: No deficits noted. Advance Directives: Currently, there is no health care proxy. home support is adequate. Assessment: 06:03 General: Appears in no apparent distress, comfortable, Behavior is appropriate for age, af2 cooperative, pt found lying on stretcher with eyes closed resting quietly. offers no complaints. . EENT: Throat is reddened Reports pain to throat.. Respiratory: Airway is patent Respiratory effort is even, unlabored. GI: Reports nausea, vomiting. Derm: Skin is normal. 06:24 General: pt vomited medications, provider notified, pt states she has been nauseous for af2 1 week.. 07:23 Adult Sepsis Screening: The patient does not have new or worsening altered mentation. js13 Patient's respiratory rate is less than 22. Systolic blood pressure is greater than 100. Patient has a qSOFA score of 0- Negative Sepsis Screen. General: Appears in no apparent distress, comfortable, Behavior is appropriate for age, cooperative. Pain: Location: throat. Neurological: Level of Consciousness is awake, alert. Respiratory: Airway is patent Respiratory effort is even, unlabored, Respiratory pattern is regular. Derm: Skin is pink, warm & dry. 07:55 Reassessment: Patient appears in no apparent distress at this time. Patient states js13 feeling better. Patient states symptoms have improved. 09:04 General: Appears in no apparent distress, comfortable, Behavior is appropriate for age, js13 cooperative. Pain: Location: throat. Neurological: Level of Consciousness is awake, alert. Respiratory: Airway is patent Respiratory effort is even, unlabored, Respiratory pattern is regular, symmetrical. Derm: Skin is pink, warm & dry. 10:05 Adult Sepsis Screening: The patient does not have new or worsening altered mentation. js13 Patient's respiratory rate is less than 22. Systolic blood pressure is greater than 100. Patient has a qSOFA score of 0- Negative Sepsis Screen. General: Appears in no apparent distress, comfortable, Behavior is appropriate for age, cooperative. Pain: Denies pain. Neurological: Level of Consciousness is awake, alert. Respiratory: Airway is patent Respiratory effort is even, unlabored, Respiratory pattern is regular, symmetrical. Derm: Skin is pink, warm & dry. Vital Signs: 01:55 BP 117 / 69; Pulse 100; Resp 16; Temp 98.4(T); Pulse Ox 94% ; Weight 67.13 kg; Height 5 cz ft. 5 in. (165.10 cm); 07:22 BP 114 / 64; Pulse 89; Resp 14; Temp 98.6(O); Pulse Ox 98% on R/A; js13 10:05 BP 112 / 60; Pulse 78; Resp 14; Temp 98.4(O); Pulse Ox 98% on R/A; js13 01:55 Body Mass Index 24.63 (67.13 kg, 165.10 cm) cz Vitals: 01:55 Log In Time: October 19, 2016 at 01:32. cz 02:08 Strep Screen is obtained and tested: Negative, a GATSNEG culture is ordered in [facility] cz and sent. ED Course: 01:33 Patient visited by Darek Moncada Reg. pm4 01:33 Patient moved to Waiting pm4 01:48 Patient moved to Triage 1 cz 01:54 Triage Initiated cz 02:04 Patient moved to MTA Wait cz 03:08 [facility] Payment Agreement was scanned into [employer] and attached to record. hs2 05:08 Patient moved to Pre RCE cz 05:18 Claire Kapadia RN is Primary Nurse. af2 05:18 Patient moved to 13 af2 05:38 Michael Rodriguez DO is Attending Physician. mm11 05:38 Patient visited by Michael Rodriguez DO. mm11 05:52 Patient visited by Michael Rodriguez DO. mm11 06:04 Patient visited by Claire Kapadia RN. af2 06:04 The patient / caregiver is instructed regarding the plan of care and ED course. Patient af2 has correct armband on for positive identification. Placed in gown. 06:04 No IV's were initiated during this patient's visit. No procedures done that require af2 assistance. 06:23 CREATINE PHOSPHOKINASE Sent. af2 06:23 Inserted saline lock: 20 gauge in left hand and blood collected. The patient tolerated af2 the procedure well. 06:25 Patient visited by Claire Kapadia RN. af2 06:57 Patient visited by Claire Kapadia RN. af2 07:05 Gloria Neal RN is Primary Nurse. js13 07:24 Patient visited by Gloria Neal RN. js13 07:36 Attending Physician role handed off by Michael Rodriguez DO fg 07:36 Sunshine Duenas MD is Attending Physician. fg 07:45 Primary Nurse role handed off by Claire Kapadia RN kr3 07:55 Patient visited by Gloria Neal RN. js13 09:05 Patient visited by Gloria Neal RN. js13 09:59 [facility] is Referral Physician. fg 10:05 Discontinued IV lock intact, bleeding controlled, pressure dressing applied, No js13 redness/swelling at site. 15:10 T-Sheet-- Draft Copy was scanned into Com[employer] and attached to record. gb Administered Medications: 06:02 Drug: Ondansetron ODT 4 mg [ondansetron 4 mg disintegrating tablet (1 tabs)] Route: PO; af2 06:03 Drug: Lidocaine Viscous 15 ml [Lidocaine Viscous 2 % mucosal solution (15 mL)] Route: af2 Mucous Membrane; Site: affected area; 06:23 Drug: Ondansetron 4 mg [ondansetron HCl 2 mg/mL intravenous solution (2 mL)] Route: af2 IVP; Site: left hand; 06:23 Drug: ketorolac 30 mg [ketorolac 30 mg/mL (1 mL) injection solution (1 mL)] Route: IVP; af2 Site: left hand; 06:23 Drug: LR 1000 ml [lactated ringers intravenous solution] Route: IV; Rate: bolus; Site: af2 left hand; 09:04 Follow up: IV Status: Completed infusion; IV Intake: 1000ml js13 Intake: 09:04 IV: 1000.00ml; Total: 1000.00ml. js13 Order Results: Lab Order: GATS (NEGATIVE STREP SCREEN); SPEC'M 10/19/16 02:00 Test: GATS CULTURE (NEG STREP SCR); Value: GATS RESULT NEGATIVE FOR STREP PYOGENES (GROUP A); Status: F Test: GATS CULTURE (NEG STREP SCR); Value: <EXTERNAL COMMENT eCWMed> FULL REPORT IN LAB NOTES (eCW and Medent).; Status: F Lab Order: CBC with Diff; SPEC'M 10/19/16 06:12 Test: WHITE BLOOD COUNT; Value: 10.5; Range: 4.0-10.0; Abnormal: Above high normal; Units: K/mm3; Status: F Test: RED BLOOD COUNT; Value: 4.24; Range: 4.00-5.40; Units: M/mm3; Status: F Test: HEMOGLOBIN; Value: 12.7; Range: 12.0-16.0; Units: g/dl; Status: F Test: HEMATOCRIT; Value: 37.3; Range: 36.0-47.0; Units: %; Status: F Test: MEAN CORPUSCULAR VOLUME; Value: 88.0; Range: 80.0-96.0; Units: fl; Status: F Test: MEAN CORPUSCULAR HEMOGLOBIN; Value: 29.9; Range: 27.0-33.0; Units: pg; Status: F Test: MEAN CORPUSCULAR HGB CONC; Value: 34.0; Range: 32.0-36.5; Units: g/dl; Status: F Test: RED CELL DISTRIBUTION WIDTH; Value: 12.3; Range: 11.5-14.5; Units: %; Status: F Test: PLATELET COUNT, AUTOMATED; Value: 228; Range: 150-450; Units: k/mm3; Status: F Test: NEUTROPHILS %; Value: 75.1; Range: 36.0-66.0; Abnormal: Above high normal; Units: %; Status: F Test: LYMPH %; Value: 17.3; Range: 24.0-44.0; Abnormal: Below low normal; Units: %; Status: F Test: MONO %; Value: 4.2; Range: 0.0-5.0; Units: %; Status: F Test: EOS %; Value: 0.9; Range: 0.0-3.0; Units: %; Status: F Test: BASO %; Value: 0.3; Range: 0.0-1.0; Units: %; Status: F Test: LARGE UNSTAINED CELL %; Value: 2.2; Range: 0.0-4.0; Units: %; Status: F Test: NEUTROPHILS #; Value: 7.9; Range: 1.8-7.7; Abnormal: Above high normal; Units: K/mm3; Status: F Test: LYMPH #; Value: 1.8; Range: 1.5-6.5; Units: K/mm3; Status: F Test: MONO #; Value: 0.5; Range: 0.0-0.8; Units: K/mm3; Status: F Test: EOS #; Value: 0.1; Range: 0.0-0.50; Units: K/mm3; Status: F Test: BASO #; Value: 0.0; Range: 0.0-0.2; Units: K/mm3; Status: F Test: LARGE UNSTAINED CELL #; Value: 0.2; Range: 0.0-0.4; Units: K/mm3; Status: F Lab Order: [facility]; SPEC'M 10/19/16 06:12 Test: GLUCOSE, FASTING; Value: 86; Range: 70-105; Units: MG/DL; Status: F Test: BLOOD UREA NITROGEN; Value: 11; Range: 7-18; Units: MG/DL; Status: F Test: CREATININE FOR GFR; Value: 0.75; Range: 0.55-1.02; Units: MG/DL; Status: F Test: SODIUM LEVEL; Range: 136-145; Units: MEQ/L; Status: I Test: POTASSIUM SERUM; Range: 3.5-5.1; Units: MEQ/L; Status: I Test: CHLORIDE LEVEL; Range: 98-107; Units: MEQ/L; Status: I Test: CARBON DIOXIDE LEVEL; Range: 21-32; Units: MEQ/L; Status: I Test: ANION GAP; Range: 8-16; Units: MEQ/L; Status: I Test: CALCIUM LEVEL; Range: 8.5-10.1; Units: MG/DL; Status: I Test: GLOMERULAR FILTRATION RATE; Value: > 60.0; Range: >60; Status: F Test: SODIUM LEVEL; Value: 143; Range: 136-145; Units: MEQ/L; Status: F Test: POTASSIUM SERUM; Value: 3.5; Range: 3.5-5.1; Units: MEQ/L; Status: F Test: CHLORIDE LEVEL; Value: 110; Range: 98-107; Abnormal: Above high normal; Units: MEQ/L; Status: F Test: CARBON DIOXIDE LEVEL; Value: 23; Range: 21-32; Units: MEQ/L; Status: F Test: ANION GAP; Value: 10; Range: 8-16; Units: MEQ/L; Status: F Test: CALCIUM LEVEL; Value: 8.8; Range: 8.5-10.1; Units: MG/DL; Status: F Test Note: ; Units are mL/min/1.73 m2 Chronic Kidney Disease Staging per NKF: Stage I & II GFR >=60 Normal to Mildly Decreased Stage III GFR 30-59 Moderately Decreased Stage IV GFR 15-29 Severely Decreased Stage V GFR <15 Very Little GFR Left ESRD GFR <15 on CLEANER GREASER Lab Order: HCG,Serum Qualitative; SPEC'M 10/19/16 06:12 Test: HCG, SERUM QUALITATIVE; Value: NEGATIVE; Range: NEGATIVE; Status: F Lab Order: CREATINE PHOSPHOKINASE; SPEC'10/19/16 06:12 Test: CPK CREATINE PHOSPHOKINASE; Value: 54; Range: 26-192; Units: U/L; Status: F Lab Order: Monoscreen; SPEC'M 10/19/16 06:12 Test: MONO SCRN; Value: NEGATIVE; Range: NEGATIVE; Status: F Outcome: 10:00 Discharge ordered by Provider. 10:08 Discharge Assessment: Patient awake, alert and oriented x 3. No cognitive and/or js13 functional deficits noted. Patient verbalized understanding of disposition instructions. patient administered narcotics - no. The following High Risk Discharge criteria are identified: None. Discharged to home ambulatory, with significant other. Condition: stable. Discharge instructions given to patient, Instructed on discharge instructions, follow up and referral plans. Demonstrated understanding of instructions, Pt was receptive of discharge instructions/ teaching. No special radiology studies were completed. Property :Personal belongings accompany Pt. 10:08 Patient left the ED. js13 Signatures: Claus aGmez RN RN cz Barnhardt, Gloria, Reg Reg gb Mel Shell RN RN [email or web address] Michael Rodriguez, DO DO mm11 Gloria Neal RN RN js13 Claire Kapadia RN RN af2 Sunshine Duenas MD MD Lacey Sneed, Reg Reg hs2 Darek Moncada, Reg Reg pm4 Chart Complete MTDD
--- NOTE | 2016-10-21 11:09 | EDDOCDS ---
Physician Documentation [facility] Name: Mary Lou Marrero Age: 20 yrs Sex: Female : 1995 Arrival Date: 10/19/2016 Time: 01:32 Bed 13 Private MD: Disposition: 10/19/16 10:00 Discharged to Home/Self Care. Impression: Acute pharyngitis. - Condition is Stable. - Discharge Instructions: Pharyngitis. - Prescriptions for Zofran 4 mg Oral Tablet - take 1 tablet by ORAL route 1-2 times daily As needed; 5 tablet. - Medication Reconciliation, Local Pharmacy Hours form. - Follow up: Elliott Paniagua, [facility]; When: Call to arrange an appointment; Reason: Continuance of care. - Problem is new. - Symptoms have improved. Historical: - Allergies: Codeine Sulfate (Anaphylaxis); - Home Meds: 1. Advair Diskus 500-50 mcg/dose Inhl dsdv 1 puff 2 times per day 2. albuterol sulfate 90 mcg/actuation Inhl HFAA 2 puffs every 12 hours 3. Zyrtec Oral 4. sudafed - PMHx: Asthma; Ovarian cyst; - PSHx: none; - Social history: Smoking status: Patient states was never smoker of tobacco. No barriers to communication noted, The patient speaks fluent Ecuadorean, Speaks appropriately for age. - Family history: Not pertinent. - : The pt / caregiver states he / she is not on anticoagulants. Home medication list is obtained from the patient. - Exposure Risk Screening:: None identified. 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 5 in. (165.10 cm); 07:22 BP 114 / 64; Pulse 89; Resp 14; Temp 98.6(O); Pulse Ox 98% on R/A; js13 10:05 BP 112 / 60; Pulse 78; Resp 14; Temp 98.4(O); Pulse Ox 98% on R/A; js13 01:55 Body Mass Index 24.63 (67.13 kg, 165.10 cm) cz MDM: 01:58 Strep Screen, Nursing ordered. cz 02:10 GATS (NEGATIVE STREP SCREEN) Ordered. EDMS 03:08 [facility] Payment Agreement was scanned into MDSave and attached to record. hs2 05:52 Lidocaine Viscous Liquid 2 % 15 ml Mucous Membrane in affected area once ordered. mm11 05:52 Ondansetron ODT Oral Disintegrating Tablet 4 mg PO once ordered. mm11 05:52 Misc. Nursing Order ordered. mm11 05:58 Financial registration complete. hs2 06:06 IV Saline Lock ordered. mm11 06:06 Ondansetron 4 mg IVP once ordered. mm11 06:06 ketorolac 30 mg IVP once ordered. mm11 06:06 LR Solution 1000 ml IV at bolus once ordered. mm11 06:07 CBC with Diff Ordered. EDMS 06:07 BMP Ordered. EDMS 06:07 HCG,Serum Qualitative Ordered. EDMS 06:18 CREATINE PHOSPHOKINASE Ordered. EDMS 06:44 CBC with Diff Reviewed. mm11 06:44 HCG,Serum Qualitative Reviewed. mm11 06:54 BMP Reviewed. mm11 06:54 HCG,Serum Qualitative Reviewed. mm11 06:54 CREATINE PHOSPHOKINASE Reviewed. mm11 07:11 Monoscreen Ordered. EDMS 15:10 T-Sheet-- Draft Copy was scanned into MDSave and attached to record. gb Administered Medications: 06:02 Drug: Ondansetron ODT 4 mg [ondansetron 4 mg disintegrating tablet (1 tabs)] Route: PO; af2 06:03 Drug: Lidocaine Viscous 15 ml [Lidocaine Viscous 2 % mucosal solution (15 mL)] Route: af2 Mucous Membrane; Site: affected area; 06:23 Drug: Ondansetron 4 mg [ondansetron HCl 2 mg/mL intravenous solution (2 mL)] Route: af2 IVP; Site: left hand; 06:23 Drug: ketorolac 30 mg [ketorolac 30 mg/mL (1 mL) injection solution (1 mL)] Route: IVP; af2 Site: left hand; 06:23 Drug: LR 1000 ml [lactated ringers intravenous solution] Route: IV; Rate: bolus; Site: af2 left hand; 09:04 Follow up: IV Status: Completed infusion; IV Intake: 1000ml js13 Signatures: Dispatcher [employer] EDMS Clasu Gamez RN RN cz Berta Huynh, Reg Reg gb Michael Rodriguez, DO CARRILLO mm11 Gloria Neal,RN RN js13 Claire Kapadia RN RN af2 Sunshine Duenas MD MD Lacey Sneed, Reg Reg hs2 The chart was reviewed and I authenticate all verbal orders and agree with the evaluation and treatment provided.Corrections: (The following items were deleted from the chart) 06:17 06:08 CREATINE PHOSPHOKINASE+LAB ordered. EDMS EDMS Attachments: 03:08 [facility] Payment Agreement hs2 15:10 T-Sheet-- Draft Copy gb Chart Complete MTDD
== END 2016-10-19 10:08 | disposition home or self-care (01) ==
LOC: M ED 01:32
DX: J06.9 Acute upper respiratory infection, unspecified (principal); J45.909 Unspecified asthma, uncomplicated; Z79.899 Other long term (current) drug therapy; Z92.240 Personal history of inhaled steroid therapy; Z88.5 Allergy status to narcotic agent
CPT/HCPCS: 36415; 80048; 82550; 84703; 85025; 86308; 87880; 96361; 96374; 96375; 99284; J1885; J2405

== ENCOUNTER → 2016-11-12 | Outpatient (REF) | payer OTHER | LOC: M SFHCLERA 16:01 | PROVIDERS: ATTEND Nurse Practitioner Family | DX: R53.81 Other malaise (principal) ==